=== PATIENT | male | born 1965 | race Hispanic/Latino ===

== ENCOUNTER 2018-06-24 13:44 | Emergency (ER) | payer SELFPAY ==
[2018-06-24 13:50] VITALS: BMI 26.2
[2018-06-24] MEDS ORDERED: Aspirin 325 mg EC Tablets PO STA (13:58)
[2018-06-24 14:17] LABS: BASO % 0.3 % (0.0-2.0); EOS # 0.1 K/uL (0.0-0.7); EOS % 1.1 % (0.0-4.0); HEMOGLOBIN 13.4 g/dL (12.0-18.0); LYMPH % 29.7 % (20.0-40.0); MEAN CELL VOLUME 96.7 fL (80.0-94.0); MEAN CORPUSCULAR HEMOGLOBIN 33.3 pg (27.0-31.0); MEAN CORPUSCULAR HGB CONC 34.4 g/dL (33.0-37.0); MEAN PLATELET VOLUME 8.4 fL (7.2-11.7); MONO # 0.4 K/uL (0.0-0.8); MONO % 5.5 % (0.0-10.0); NEUT # 4.3 K/uL (1.8-7.0); NEUT % 63.4 % (50.0-75.0); NRBC % 0.1 % (0.0-2.0); RBC 4.02 Mil/uL (4.40-5.90); RED CELL DISTRIBUTION WIDTH 13.4 % (11.5-14.5); WHITE BLOOD COUNT 6.8 K/uL (4.8-10.8)
[2018-06-24 14:20] VITALS: O2SAT 96
[2018-06-24 14:24] LABS: INR 1.1; PROTHROMBIN TIME 11.8 SECONDS (9.7-12.2)
[2018-06-24 14:32] LABS: ALB/GLOB RATIO 1.6 (1.0-2.1); ALBUMIN 4.8 g/dL (3.5-5.0); ALT/SGPT 30 U/L (21-72); AST/SGOT 24 U/L (17-59); BLOOD UREA NITROGEN 17 mg/dL (9-20); CALCIUM 10.6 mg/dl (8.6-10.4); GFR AFRICAN-AMERICAN > 60; GFR NON-AFRICAN AMERICAN > 60
[2018-06-24 14:43] LABS: B-TYPE NATRIURETIC PEPTIDE 82.1 pg/mL (0-900)
--- NOTE | 2018-06-24 14:43 | C.PDOC ---
History Of Present Illness 52 y/o male with PMHx of HTN brought in by ambulance with complaints of chest pain associated with sweats, panic, and anxiety, that began earlier today and resolved just prior to arrival. Patient reports history of panic attacks as well as acute IA x2. Also has PMHx significant for 3 cardiac stents placed and 2 stents to femoral arteries. States currently he is completely asymptomatic. Otherwise patient denies any SOB, nausea, vomiting, dizziness, headaches, or visual changes. Time Seen by Provider: 06/24/18 13:53 Chief Complaint (Nursing): Chest Pain History Per: Patient History/Exam Limitations: no limitations Onset/Duration Of Symptoms: Hrs Current Symptoms Are (Timing): Gone Quality: Pressure Past Medical History Reviewed: Historical Data, Nursing Documentation, Vital Signs Vital Signs: Last Vital Signs Temp 98.4 F 06/24/18 15:45 Pulse 65 06/24/18 15:45 Resp 17 06/24/18 15:45 BP 122/76 06/24/18 15:45 Pulse Ox 96 06/24/18 17:17 - Medical History PMH: HTN Other PMH: Myocardial infarction x2 Surgical History: Coronary Stent (x3) Other Surgeries: Femoral artery stent placement x2 Family History: States: No Known Family Hx - Social History Hx Tobacco Use: Yes (vapes) Hx Alcohol Use: No Hx Substance Use: No - Immunization History Hx Tetanus Toxoid Vaccination: No Hx Influenza Vaccination: No Hx Pneumococcal Vaccination: No Review Of Systems Except As Marked, All Systems Reviewed And Found Negative. Constitutional: Positive for: Sweats. Negative for: Fever Eyes: Negative for: Vision Change Cardiovascular: Positive for: Chest Pain. Negative for: Light Headedness Respiratory: Negative for: Shortness of Breath Gastrointestinal: Negative for: Nausea, Vomiting Neurological: Negative for: Weakness, Numbness, Headache, Dizziness Psych: Positive for: Anxiety Physical Exam - Physical Exam Appears: Non-toxic, No Acute Distress, Other (Anxious appearing) Skin: Normal Color, Warm, Dry Head: Atraumatic, Normacephalic Eye(s): bilateral: Normal Inspection Oral Mucosa: Moist Neck: Normal ROM, Supple Chest: Symmetrical, No Deformity, No Tenderness Cardiovascular: Rhythm Regular, No Murmur Respiratory: Normal Breath Sounds, No Rales, No Rhonchi, No Wheezing Gastrointestinal/Abdominal: Soft, No Tenderness, No Distention Extremity: Bilateral: Atraumatic, Normal Color And Temperature, Normal ROM Pulses: Left Radial: Normal, Right Radial: Normal Neurological/Psych: Oriented x3, Normal Speech, Normal Cranial Nerves ED Course And Treatment - Laboratory Results Result Diagrams: 06/24/18 14:13 06/24/18 14:13 Lab Interpretation: Normal (trop/bnp neg) ECG: Interpreted By Me ECG Rhythm: Sinus Rhythm, R BBB ECG Interpretation: Normal Rate From EC O2 Sat by Pulse Oximetry: 96 (RA) Pulse Ox Interpretation: Normal - Radiology CXR: Interpreted by Me CXR Interpretation: Yes: No Acute Disease Progress Note: asa, xanax Reevaluation Time: 15:11 Reassessment Condition: Improved - Physician Consult Information Outcome Of Conversation: 1500: d/w Dr. Aureliano Elizalde- Hospitalist- covering self-pay pt's- ok to admit. Against Medical Advice - AMA Patient Left Against Medical Advice: The patient declines admission to the hospital and wishes to leave the Emergency Department. This action is against my medical advice. This decision was made with informed refusal. The patient was told that admission to the hospital is necessary. Explanation of the reasons why were discussed. The risks of leaving were explained to the patient and include, but are not limited to, worsening of known or currently unknown conditions, permanent disability and from undiagnosed or untreated conditions. The patient has the capacity to make this informed decision and understands my explanation of the current medical problem and risks of leaving. The patient voluntarily accepts these risks and signed an AMA form documenting our conversation. The patient was given the opportunity to ask questions and reconsider. The patient was encouraged to return to the Emergency Department at any time for further care. Medical Decision Making Medical Decision Making: Initial Plan: * Labs w/ cardiac enzymes * EKG * CXR * Aspirin 325mg PO x1 * Xanax 0.25mg PO x1 Impression: consider ACS, though first set of trop neg, should have 2nd and 3rd due to high risk 1545; pt prefers to leave AMA and opt f/u. Disposition Doctor Will See Patient In The: Hospital Counseled Patient/Family Regarding: Studies Performed, Diagnosis, Need For Followup - Disposition Referrals: [facility] [Outside] [facility] [Outside] [facility] [Outside] [facility] [Outside] Disposition: AGAINST MEDICAL ADVICE Disposition Time: 15:46 Condition: GOOD Additional Instructions: please follow-up with our outpatient Clinic as needed Return to ED if symptoms return Instructions: Panic Disorder, Chest Pain (DC) Forms: [employer] (Sinhala) - POA Core Measure Indicators: Chest Pain - Clinical Impression Clinical Impression: Chest discomfort, Panic anxiety syndrome - Scribe Statement The provider has reviewed the documentation as recorded by the Scribe (Shannen Landaverde) Provider Attestation: All medical record entries made by the Scribe were at my direction and personally dictated by me. I have reviewed the chart and agree that the record accurately reflects my personal performance of the history, physical exam, medical decision making, and the department course for this patient. I have also personally directed, reviewed, and agree with the discharge instructions and disposition.
--- NOTE | 2018-06-24 15:34 | RAD ---
Chest x-ray single frontal view History: Shortness of breath. Comparison: None available. Findings: Ovoid opacity projecting over the lateral aspect of the left mid lung zone likely representing external device. Clinical correlation. Mild venous congestion. Biapical pleural thickening. Status post median sternotomy. Degenerative changes in the spine. Impression: Ovoid opacity projecting over the lateral aspect of the left mid lung zone likely representing external device. Clinical correlation. Mild venous congestion. Biapical pleural thickening. Status post median sternotomy.
[2018-06-24 15:47] VITALS: BP 122/76; PULSE 65; RESP 17; TEMP 98.4
[2018-06-24 15:51] LABS: URINE BILIRUBIN NEGATIVE (NEGATIVE); URINE BLOOD NEGATIVE (NEGATIVE); URINE CLARITY Clear (Clear); URINE COLOR Yellow (YELLOW); URINE GLUCOSE (UA) NORMAL (Normal); URINE LEUKOCYTE ESTERASE NEG Leu/uL (Negative); URINE PROTEIN NEGATIVE (NEGATIVE); URINE UROBILINOGEN NORMAL mg/dL (0.2-1.0)
[2018-06-24 16:01] LABS: BARBITURATES, UR NEGATIVE (NEGATIVE); BENZODIAZEPINES, UR NEGATIVE (NEGATIVE); OPIATES, UR NEGATIVE (NEGATIVE); PHENCYCLIDINE, UR NEGATIVE (NEGATIVE)
== END 2018-06-24 16:21 | disposition left against medical advice (07) ==
LOC: C.ER 13:44 → C.9E 15:08 → UNDOADMOB 15:08 → C.9E 15:49 → C.6T 15:49 → C.ER 16:21
DX: R07.89 Other chest pain (principal); F41.0 Panic disorder [episodic paroxysmal anxiety]
CPT/HCPCS: 71045; 80053; 81001; 83880; 84484; 85025; 85610; 85730; 93005; 99285; G0480